=== PATIENT | female | born 1945 | race Caucasian/White ===

== ENCOUNTER 2017-10-29 12:04 | Day surgery (SDC) | payer MEDICARE, BC ==
[~2017-10-29 12:04] MED LIST: ASPIR-LOW81 MG PO; DYAZIDE CAP (M1 EACH PO; FERROUSAL325 MG PO; METFORMIN 500M500 M1 PO; POTASSIUM CHLO10 ME3 PO; PRAVACHOL 40MG40 MG PO; RAMIPRIL2.5 MG PO
--- NOTE | 2017-10-29 14:28 | Operative Note ---
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 The oncology service requested sigmoidoscopy with biopsy prior to implementation of therapy. Findings: Large amount of stool in the sigmoid and rectum making visualization very difficult Complex fungating mass lesion around 45-50 cm Procedure Description: After informed consent was obtained, the patient was taken to the endoscopy suite. IV sedation ensued after she was transferred to the LEFT lateral decubitus position. Digital rectal exam revealed no significant abnormality. The colonoscope was placed in position. A large amount of stool in the rectal vault was noted despite the patient received multiple enemas. A combination of suctioning and retrieval with net was utilized to free some of the stool. Around 45-50 cm a complex fungating mass lesion was encountered. This was an area of curvature in visualization was exceedingly difficult. Multiple biopsies were obtained. The colonoscope was carefully removed and the patient was transferred to recovery. EBL (ml): 1 Anesthesia: IV sedation with 9 mg every Versed and 200 g of fentanyl Complications: No immediate Specimens: Biopsy of sigmoid lesion Disposition Disposition: Stable to recovery from where she will be discharged home. She will follow-up in one week. at [id number]
[2017-10-29 17:11] VITALS: BP 101/56
--- NOTE | 2017-10-29 17:39 | RADIOLOGY REPORT PS360 ---
ABDOMEN-FLAT UPRIGHT Ordering Physician: ARABELLA RUSH MD Patient Age: 72 years: Female HISTORY: ABD PAIN S/P SIGMOIDOSCOPY TECHNIQUE: Flat and upright abdomen. Acute abdominal series COMPARISON :10/21/2017 CXR FINDINGS Upright abdomen include the chest. We again see the large mass lesions throughout the chest compatible with pronounced pulmonary metastatic disease. . Largest lesions are seen at the right upper chest also with mass at the left midlung and likely the right paratracheal region.. These will benefit from follow-up CT chest within feasible The flat and upright abdomen images demonstrate moderate stool and gas throughout the colon with no bowel dilatation or obstruction. No free air. Moderate stool seen throughout the colon. There are a few small air-fluid levels at the right and transverse colon may reflect liquids stool in these regions. IMPRESSION: No acute findings. No free no free intraperitoneal air. Nonspecific bowel gas pattern. No significant bowel dilatation or obstruction. Generous gas, and minimal stool most evident at distal colon..... Modest air-fluid levels in the right and transverse colon may reflect some liquid stool
== END 2017-10-29 17:10 | disposition home or self-care (01) ==
LOC: SDC 12:04
PROVIDERS: Surgery
PROC: 0DBN8ZX Excision of Sigmoid Colon, Via Natural or Artificial Opening Endoscopic, Diagnostic (ICD-10-PCS; principal; 2017-10-29 13:00)
DX: C18.7 Malignant neoplasm of sigmoid colon (principal); C78.00 Secondary malignant neoplasm of unspecified lung; C78.7 Secondary malignant neoplasm of liver and intrahepatic bile duct; E11.8 Type 2 diabetes mellitus with unspecified complications